=== PATIENT | female | born 2000 | race Caucasian/White ===

== ENCOUNTER 2022-09-21 00:01 | Emergency (ER) | payer SELFPAY ==
[2022-09-21 00:05] VITALS: BP 137/80; PULSE 76; RESP 16; TEMP 36.5; O2SAT 100
--- NOTE | 2022-09-21 00:32 | ED.GENADUL_ITS ---
Discharge Plan Disposition Patient Disposition: Home Condition: Good Discharge Details Chief Complaint: Laceration Clinical Impression: Laceration of left index finger Primary Care Provider: None,None ED Provider: Napoleon Harry Discharge Instructions Instructions: Care For Your Stitches (ED), Finger Laceration (ED) Additional Instructions: Please leave the dressing on for 24 hours. Do not directly soak the area. Watch for any signs of infection and return if any increasing redness, swelling, pain, drainage. Please return in 7 to 10 days to have the sutures removed. If you notice any worsening of your symptoms, or any new symptoms such as vo miting, diarrhea, fever, chills, shortness of breath, chest pain, numbness, weakness, or fainting , please return immediately to the emergency department for reevaluation. Please follow up with your primary care provider as soon as possible for reassessment and reevaluation. As always, it was a pleasure participating in your medical care today. Stand Alone Forms: Work Release Medical Decision Making This is a pleasant 22-year-old female who is right-hand dominant who presents for a laceration of her left hand. While at work she states that her hand/glove was caught in a machine and sharp plastic came and cut the edge of her index finger and middle finger. Middle finger laceration was notably superficial and only required mild Band-Aid. However the index finger was notably bleeding and so she came for further assessment. She denies any other complaints at this time aside for tingling in the distal aspect of her finger. She does not know when her tetanus was last updated. Exam demonstrates a 2 cm laceration over the lateral aspect of the left index finger at the PIP joint. Normal movement and strength. Diminished sensation over the lateral aspect suggesting mild nerve injury. Bleeding well controlled with tourniquet device. 4 simple interrupted sutures were placed, patient tolerated this well. Area was cleaned extensively. No foreign bodies. Small amount of Dermabond was applied to the laceration site post procedure. Recommend close follow-up. Discussed red flags for which to return. Recommend multivitamin use for nerve injury and follow-up if symptoms continue or worsen. I have extensively reviewed the treatment plan and discharge instructions with the patient. I have addressed all patient concerns at this time. The patient was made aware of what symptoms to monitor for that would warrant a return to the emergency department. Discussed the plan with the patient, they demonstrate verbal understanding and agreement with our assessment and plan at this time. The documentation in this chart was dictated using [employer] dictation software. Please excuse any dictation errors. Sign Out No HPI General Date/Time Provider Initiated Documentation: 09/21/22 00:32 . HPI Narrative: This is a pleasant 22-year-old female who is right-hand dominant who presents for a laceration of her left hand. While at work she states that her hand/glove was caught in a machine and sharp plastic came and cut the edge of her index finger and middle finger. Middle finger laceration was notably superficial and only required mild Band-Aid. However the index finger was notably bleeding and so she came for further assessment. She denies any other complaints at this time aside for tingling in the distal aspect of her finger. She does not know when her tetanus was last updated. General Stated Complaint: Laceration STEPHAN: 4 Review of Systems All systems reviewed & are unremarkable except as noted in HPI and below PFSH All Active Problems Laceration of left index finger (Acute) Social History Smoking/Tobacco Use Status: Never Smoking risk assessment performed?: Yes Do you feel safe at home: Yes Do you feel safe in your relationship?: Yes Exam Narrative Exam Narrative: 1.Const: Well-nourished, Well-developed, appearing stated age 2.Eyes: PERRL, no conjunctival injection, and symmetrical lids. 3.ENT: Atraumatic external nose and ears. Moist MM. Neck: Symmetric, trachea midline, No thyromegaly. 4.CVS: +S1/S2, No murmurs or gallops. Peripheral pulses 2+ and equal in all extremities. Brisk capillary refill in all extremities. 5.RESP: Unlabored respiratory effort. Clear to auscultation bilaterally. No wheezes rales or rhonchi 6.GI: Soft, Nontender/Nondistended, No hepatosplenomegaly. No guarding or rebound. 7.MSK: Normocephalic, Extremities w/o deformity or ttp No cyanosis or clubbing, Normal movement of all extremities. Left index finger demonstrates normal flexion and extension movement. No weakness or inhibition. Patient does demonstrate a 2 cm laceration on the lateral aspect of the index finger over the PIP joint. No evidence of tendon involvement. Good capillary refill. Distal exam does show diminished sensation on the lateral aspect of the finger distal to the laceration. The medial aspect, the pad of the finger, and the dorsal aspect of normal sensation. 8.Skin: Warm, Dry. No rashes or lesions. 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 Sensation grossly intact, no focal neurologic deficits. Please see musculoskeletal 10.Psych: (AAO) x3. Appropriate mood and affect Course Vital Signs Vital signs: Vital Signs Temperature 36.5 C 09/21/22 00:05 Pulse 76 09/21/22 00:05 Respiratory Rate 16 09/21/22 00:05 Blood Pressure 137/80 09/21/22 00:05 Pulse Oximetry 100 09/21/22 00:05 Temperature 36.5 C 09/21/22 00:05 Pulse 76 09/21/22 00:05 Respiratory Rate 16 09/21/22 00:05 Respiratory Effort 09/21/22 00:09 Blood Pressure 137/80 09/21/22 00:05 Blood Pressure Position Sitting 09/21/22 00:05 Pulse Oximetry 100 09/21/22 00:05 Oxygen Delivery Method Room Air 09/21/22 00:05 Oxygen Flow Rate 0 09/21/22 00:05 Pain Level 0 09/21/22 00:05 Procedures Laceration Laceration 1: Site: hand Side (If applicable): left Size (cm): 2 Description: linear Depth: simple, single layer Local Anesthetic: Lidocaine 1% Amount of anesthesia used (mL): 4 Pre-repair: wound explored, irrigated extensively and deep structures intact Skin layer closed with: nylon Size (cm): 4-0 Number of sutures: 4 Technique: simple, interrupted
== END 2022-09-21 01:00 | disposition home or self-care (01) ==
PROVIDERS: Emergency Provider Student in an Organized Health Care Education/Training Program
DX: S61.211A Laceration without foreign body of left index finger without damage to nail, initial encounter (principal); W31.89XA Contact with other specified machinery, initial encounter; Y99.0 Civilian activity done for income or pay
CPT/HCPCS: 12001; 90471

== ENCOUNTER 2022-10-07 01:42 | Emergency (ER) | payer SELFPAY ==
[2022-10-07 01:45] VITALS: BP 141/72; PULSE 89; RESP 20; TEMP 37; O2SAT 100
--- NOTE | 2022-10-07 01:47 | ED.GENADUL_ITS ---
Discharge Plan Disposition Patient Disposition: Home Condition: Good Discharge Details Clinical Impression: Encounter for removal of sutures Primary Care Provider: None,None ED Provider: Napoleon Harry Discharge Instructions Additional Instructions: You may return to work. All restrictions have been lifted. Please keep a Band- Aid on the area, and apply moisturizer 2-3 times per day. If you notice any worsening of your symptoms, or any new symptoms such as vomiting, diarrhea, fever, chills, shortness of breath, chest pain, numbness, weakness, or fainting , please return immediately to the emergency department for reevaluation. Please follow up with your primary care provider as soon as possible for reassessment and reevaluation. As always, it was a pleasure participating in your medical care today. Medical Decision Making Patient presents for suture removal. Left index finger demonstrates excellent skin healing. No dehiscence whatsoever or infection. All sutures were removed. Patient tolerated this well. I have extensively reviewed the treatment plan and discharge instructions with the patient. I have addressed all patient concerns at this time. The patient was made aware of what symptoms to monitor for that would warrant a return to the emergency department. Discussed the plan with the patient, they demonstrate verbal understanding and agreement with our assessment and plan at this time. The documentation in this chart was dictated using [employer] dictation software. Please excuse any dictation errors. Sign Out No HPI General Date/Time Provider Initiated Documentation: 10/07/22 01:43 . HPI Narrative: Patient presents for removal of sutures from her left index finger. No complications. General STEPHAN: 4 Review of Systems All systems reviewed & are unremarkable except as noted in HPI and below PFSH All Active Problems (Updated 10/07/22 @ 01:47 by Napoleon Harry DO) Laceration of left index finger (Acute) Encounter for removal of sutures (Acute) Social History Smoking/Tobacco Use Status: Never Smoking risk assessment performed?: Yes Alcohol Intake: current Alcohol Intake frequency: a few times a week Drug use: Never Substance use type: does not use Do you feel safe at home: Yes Do you feel safe in your relationship?: Yes Exam Narrative Exam Narrative: Patient's left index finger demonstrates an incision site that is clean dry and intact with excellent healing. No evidence of dehiscence. Sutures in place. No redness.
== END 2022-10-07 01:52 | disposition home or self-care (01) ==
LOC: ER 02:09
PROVIDERS: Emergency Provider Student in an Organized Health Care Education/Training Program
DX: S61.211D Laceration without foreign body of left index finger without damage to nail, subsequent encounter (principal); X58.XXXD Exposure to other specified factors, subsequent encounter; Z48.02 Encounter for removal of sutures